=== PATIENT | female | born 1935 | race Caucasian/White ===

== ENCOUNTER 2017-06-24 12:04 | Emergency (ER) | payer OTHER ==
[2017-06-24 12:32] VITALS: TEMP 98.4; BMI 21.6
[2017-06-24 14:00] LABS: BASOPHIL 0.5 % (0-2.0); EOSINOPHIL 1.4 % (0-4.5); MCH 21.9 pg (25.7-33.7); MCHC 32.6 g/dl (32.0-36.0); MEAN CELL VOLUME 67.1 fl (80-96); MEAN PLT VOLUME 8.9 fl (7.5-11.1); NEUTROPHILS 55.3 % (42.8-82.8); PLATELET COUNT 243 K/MM3 (134-434); WHITE BLOOD COUNT 4.3 K/mm3 (4.0-10.0)
[2017-06-24 14:08] LABS: URINE APPEARANCE SLCLOUDY; URINE BILIRUBIN NEGATIVE (NEGATIVE); URINE BLOOD 2+ (NEGATIVE); URINE COLOR YELLOW; URINE GLUCOSE (UA) NEGATIVE (NEGATIVE); URINE KETONE NEGATIVE (NEGATIVE); URINE NITRITE NEGATIVE (NEGATIVE); URINE UROBILINOGEN NEGATIVE mg/dL (0.2-1.0)
[2017-06-24 14:13] LABS: URINE PROTEIN 1+ (NEGATIVE)
[2017-06-24 14:14] LABS: INR 1.71 (0.82-1.09); PROTHROMBIN TIME (PATIENT) 19.3 SEC (9.98-11.88)
[2017-06-24 14:24] LABS: ALBUMIN 3.6 g/dl (3.4-5.0); ANION GAP 6 (8-16); BILIRUBIN,TOTAL 0.9 mg/dL (0.2-1.0); CALCIUM 8.1 mg/dL (8.5-10.1); CO2 28 mmol/L (21-32); GLUCOSE,RANDOM 93 mg/dL (74-106); SGOT/AST 10 U/L (15-37); SGPT/ALT 20 U/L (12-78)
[2017-06-24 14:27] LABS: ALK PHOS 83 U/L (45-117); CPK 39 IU/L (26-192); TROPONIN I < 0.02 ng/ml (0.00-0.05); URINE HYALINE CAST 3 /lpf; URINE RBC 8 /hpf (0-3); URINE WBC 64 /hpf (3-5)
--- NOTE | 2017-06-24 14:52 | PDOC ---
History of Present Illness - General Chief Complaint: Hematuria Stated Complaint: CHEST PAIN (PCP SENT) Time Seen by Provider: 06/24/17 13:01 History Source: Patient Exam Limitations: No Limitations - History of Present Illness Travel History: No Initial Comments: 06/24/17 14:45 81-year-old female sent in by Dr. Juarez for evaluation of hematuria since yesterday. 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 Patient states has also had some left suprapubic cramping intermittently for the past 2 days. Patient states had a temperature of 10-1 last week which resolved and this morning had a temperature of 100.2. Patient denies chills, weakness, headache, dizziness but states has had this tingling sensation to her chin and bilateral arms twice in the past week with urination. Timing/Duration: reports: intermittent Quality: reports: mild, cramping Abdominal Pain Onset Location: reports: suprapubic (left) Pain Radiation: reports: no radiation Aggravating Factors: improves with: Voiding Alleviating Factors: improves with: None Past History - Travel Traveled outside of the country in the last 30 days: No Close contact w/someone who was outside of country & ill: No - Past Medical History Allergies/Adverse Reactions: Allergies Allergy/AdvReac Type Severity Reaction Status Date / Time alatrofloxacin mesylate Allergy Severe THROAT Verified 06/24/17 12:18 [From Trovan] Swelling trovafloxacin mesylate Allergy Severe THROAT Verified 06/24/17 12:18 [From Trovan] Swelling Tssbtwp-Ygk-Yqm Reductase Allergy Mild THROAT Verified 06/24/17 12:18 Inhibitor SWELLING/ITCHING amlodipine besylate Allergy TINGLING Verified 06/24/17 12:18 [From Norvasc] MOUTH, COUGH olmesartan medoxomil Allergy MOUTH Verified 06/24/17 12:18 [From Benicar] TINGLING, COUGH BRANDON Inhibitors AdvReac Intermediate Verified 06/24/17 12:18 [Brandon Inhibitors] Home Medications: Ambulatory Orders Levothyroxine [Synthroid -] 88 mcg PO DAILY 10/09/11 Telmisartan [Micardis] 80 mg PO DAILY 10/09/11 Bimatoprost [Lumigan] 1 drop OU HS 03/11/14 Brinzolamide [Azopt] 1 drop OU BID 03/11/14 Calcium Carbonate [Oysco-500] 2 tab PO DAILY 03/11/14 Diltiazem Cd [Cardizem Cd -] 120 mg PO DAILY 03/11/14 Furosemide [Lasix -] 40 mg PO DAILY 03/11/14 Nebivolol HCl [Bystolic] 10 mg PO HS 03/11/14 Apixaban [Eliquis] 5 mg PO BID 06/24/17 Aspirin [Shamar Chewable] 81 mg PO DAILY 06/24/17 Nitrofurantoin Monohyd/M-Cryst [Macrobid -] 100 mg PO BID #14 capsule 06/24/17 Anemia: Yes (thalassemia) Asthma: No Cancer: Yes (melanoma R cheek) Cardiac Disorders: No CVA: No COPD: No CHF: No Dementia: No Diabetes: No GI Disorders: No Disorders: No HTN: Yes Hypercholesterolemia: Yes Liver Disease: No Seizures: No Thyroid Disease: Yes (hashimotos hypothryroidism) - Surgical History Abdominal Surgery: Yes Appendectomy: Yes Cardiac Surgery: No Cholecystectomy: Yes Lung Surgery: No Neurologic Surgery: No Orthopedic Surgery: No - Suicide/Smoking/Psychosocial Hx Smoking Status: No Smoking History: Never smoked Have you smoked in the past 12 months: No Number of Cigarettes Smoked Daily: 0 Information on smoking cessation initiated: No Hx Alcohol Use: No Drug/Substance Use Hx: No Substance Use Type: None Hx Substance Use Treatment: No Patient Lives Alone: No Review of Systems - Review of Systems Able to Perform ROS?: Yes Constitutional: Yes: Fever. No: Chills HEENTM: No: Symptoms Reported Respiratory: No: Symptoms reported Cardiac (ROS): No: Symptoms Reported ABD/GI: Yes: Abdominal cramping (left suprapubic) : Yes: Hematuria. No: Burning, Dysuria, Flank Pain Musculoskeletal: No: Back Pain Integumentary: No: Symptoms Reported Neurological: No: Symptoms reported *Physical Exam - Vital Signs Last Vital Signs Temp Pulse Resp BP Pulse Ox 98.4 F 55 L 14 155/82 99 06/24/17 12:19 06/24/17 12:19 06/24/17 12:19 06/24/17 12:19 06/24/17 12:19 - Physical Exam General Appearance: Yes: Nourished, Appropriately Dressed. No: Apparent Distress HEENT: negative: Pale Conjunctivae Respiratory/Chest: positive: Lungs Clear, Normal Breath Sounds. negative: Respiratory Distress, Accessory Muscle Use Cardiovascular: positive: Regular Rhythm, Regular Rate. negative: Murmur Gastrointestinal/Abdominal: positive: Normal Bowel Sounds, Soft, Tenderness ( mild midsuprapubic). negative: Distended Musculoskeletal: negative: CVA Tenderness Extremity: negative: Pedal Edema Integumentary: positive: Normal Color, Warm, Moist Neurologic: positive: Motor Strength 5/5 (ambulatory) ED Treatment Course - LABORATORY CBC & Chemistry Diagram: 06/24/17 13:40 06/24/17 13:40 - ADDITIONAL ORDERS Additional order review: Laboratory Results 06/24/17 06/24/17 06/24/17 13:40 13:40 13:40 PT with INR 19.30 H INR 1.71 H D Sodium 140 Potassium 3.8 Chloride 106 Carbon Dioxide 28 Anion Gap 6 L BUN 16 Creatinine 1.0 Creat Clearance w eGFR 52.95 Random Glucose 93 Lactic Acid 0.5 Calcium 8.1 L Total Bilirubin 0.9 AST 10 L D ALT 20 Alkaline Phosphatase 83 Creatine Kinase 39 Troponin I < 0.02 Total Protein 6.0 L Albumin 3.6 Urine Color Urine Appearance Urine pH Urine Protein Urine Glucose (UA) Urine Ketones Urine Blood Urine Nitrite Urine Bilirubin Urine Urobilinogen Urine RBC Urine WBC Ur Epithelial Cells Hyaline Casts 06/24/17 13:40 PT with INR INR Sodium Potassium Chloride Carbon Dioxide Anion Gap BUN Creatinine Creat Clearance w eGFR Random Glucose Lactic Acid Calcium Total Bilirubin AST ALT Alkaline Phosphatase Creatine Kinase Troponin I Total Protein Albumin Urine Color Yellow Urine Appearance Slcloudy Urine pH 6.0 Urine Protein 1+ H Urine Glucose (UA) Negative Urine Ketones Negative Urine Blood 2+ H Urine Nitrite Negative Urine Bilirubin Negative Urine Urobilinogen Negative Urine RBC 8 Urine WBC 64 Ur Epithelial Cells Rare Hyaline Casts 3 06/24/17 13:40 RBC 5.15 MCV 67.1 L MCHC 32.6 RDW 16.0 H MPV 8.9 Neutrophils % 55.3 Lymphocytes % 26.2 D Monocytes % 16.6 H Eosinophils % 1.4 Basophils % 0.5 - RADIOLOGY Radiology Studies Ordered: Category Date Time Status KIDNEY / RENAL US [US] Stat Ultrasound 06/24/17 14:37 Ordered PELVIC / BLADDER US [US] Stat Ultrasound 06/24/17 13:10 Ordered Medical Decision Making - Medical Decision Making 06/24/17 14:04 Patient complains of hematuria since yesterday and a temperature of 102 last week. Patient also mentioned tingling to her bilateral arms twice over the past week. Patient exam had mild mid suprapubic tenderness with no CVA tenderness. Vital signs stable here in the ER. Patient was ordered for labs including coags , urine and urine culture, and ultrasound of the kidneys and bladder. 06/24/17 16:29 Laboratory Tests 06/24/17 06/24/17 06/24/17 13:40 13:40 13:40 WBC 4.3 Hgb 11.3 Hct 34.6 Plt Count 243 Neutrophils % 55.3 Monocytes % 16.6 H Platelet Estimate Adequate Fragmented RBCs 1+ PT with INR INR Sodium 140 Potassium 3.8 Chloride 106 Carbon Dioxide 28 Anion Gap 6 L BUN 16 Creatinine 1.0 Creat Clearance w eGFR 52.95 Random Glucose 93 Lactic Acid Calcium 8.1 L Total Bilirubin 0.9 AST 10 L D Troponin I < 0.02 Urine Protein 1+ H Urine Blood 2+ H Ur Leukocyte Esterase Pending Urine RBC 8 Urine WBC 64 06/24/17 06/24/17 13:40 13:40 WBC Hgb Hct Plt Count Neutrophils % Monocytes % Platelet Estimate Fragmented RBCs PT with INR 19.30 H INR 1.71 H D Sodium Potassium Chloride Carbon Dioxide Anion Gap BUN Creatinine Creat Clearance w eGFR Random Glucose Lactic Acid 0.5 Calcium Total Bilirubin AST Troponin I Urine Protein Urine Blood Ur Leukocyte Esterase Urine RBC Urine WBC Ultrasound of the kidney and pelvis showed no acute findings. Case discussed with Dr. flanagan, who spoke to Dr. Juarez feels patient may be discharged home with an antibiotic and can follow-up in the office on Tuesday. Patient given strict instructions to return to ED if symptoms worsen and to take antibiotics as prescribed. *DC/Admit/Observation/Transfer Diagnosis at time of Disposition: Hematuria, Urinary tract infection - Discharge Dispostion Disposition: HOME Condition at time of disposition: Good - Prescriptions Prescriptions: Nitrofurantoin Monohyd/M-Cryst [Macrobid -] 100 mg PO BID #14 capsule - Referrals Referrals: Wilmer Juarez MD [Primary Care Provider] - - Patient Instructions Printed Discharge Instructions: DI for Urinary Tract Infection (UTI), DI for Hematuria Additional Instructions: Please take antibiotics as prescribed until completed. Please drink plenty of water and if symptoms continue or worsen please return to the nearest emergency department. Otherwise follow-up with Dr. Juarez Tuesday
[2017-06-24 15:39] LABS: PLATELET ESTIMATE ADEQUATE (NORMAL)
[2017-06-24 15:40] LABS: HYPOCHROMIA 2+; SCHISTOCYTES FEW
[2017-06-24 16:40] VITALS: BP 140/79; PULSE 58
[2017-06-24 19:22] LABS: URINE LEUK ESTERASE 3+ (NEGATIVE)
--- NOTE | 2017-06-25 09:36 | EKG ---
Test Reason : Blood Pressure : / mmHG Vent. Rate : 056 BPM Atrial Rate : 056 BPM P-R Int : 174 ms QRS Dur : 086 ms QT Int : 468 ms P-R-T Axes : 033 003 012 degrees QTc Int : 451 ms SINUS BRADYCARDIA OTHERWISE NORMAL ECG WHEN COMPARED WITH ECG OF 11-MAR-2014 13:06, NO SIGNIFICANT CHANGE WAS FOUND Confirmed by HARSHA RODNEY MD ([id number]) on 06/25/2017 9:35:46 AM Referred By: Confirmed By:HARSHA RODNEY MD
== END 2017-06-24 16:40 | disposition home or self-care (01) ==
LOC: JER 12:04
DX: N39.0 Urinary tract infection, site not specified (principal); R31.9 Hematuria, unspecified; Z86.718 Personal history of other venous thrombosis and embolism; Z79.01 Long term (current) use of anticoagulants; I10 Essential (primary) hypertension; E78.00 Pure hypercholesterolemia, unspecified; D56.9 Thalassemia, unspecified; E03.9 Hypothyroidism, unspecified
CPT/HCPCS: 36415; 76775-TC; 76856-TC; 80053; 81003; 81015; 82550; 83605; 84484; 85025; 85610; 87086; 87186; 93005; 93010; 99284-25

== ENCOUNTER 2017-08-07 17:57 | Emergency (ER) | payer OTHER ==
--- NOTE | 2017-08-07 18:02 | PDOC ---
History of Present Illness - General History Source: Patient, Friend Exam Limitations: No Limitations - History of Present Illness Initial Comments: 08/07/17 18:14 The patient is a 81 year old female, with a significant past medical history of DVT on Eliquis, and hypertension, who presents to the emergency department with dry cough for approx. one week. The patient reports that approx. one week ago she was prescribed a Z-Len from her PCP Dr. Juarez over the phone for a measured fever, dry cough and nasal congestion. The patient states the fever resolved approx. 5 days ago, however, the cough has been productively worse. The patient states the cough has been non-productive, however, she feels as though she has a lot of mucus that is not coming up when she coughs. The patient reports the cough is worse at night while lying down and states that today the cough is the worse it has been. The patient reports shortness of breath on exertion secondary to the dry cough. She denies recent fever, chills, headache or dizziness. She denies recent nausea , vomit, diarrhea or constipation. She denies chest pain. PCP: Dr. Juarez <Freddie Peralta - Last Filed: 08/07/17 18:14> <Lisha Casanova - Last Filed: 08/07/17 19:04> - General Chief Complaint: Respiratory Stated Complaint: COUGH Time Seen by Provider: 08/07/17 18:01 Past History <Freddie Peralta - Last Filed: 08/07/17 18:14> - Past Medical History Anemia: Yes (thalassemia) Asthma: No Cancer: Yes (melanoma R cheek) Cardiac Disorders: No CVA: No COPD: No CHF: No Dementia: No Diabetes: No GI Disorders: No Disorders: No HTN: Yes Hypercholesterolemia: Yes Liver Disease: No Seizures: No Thyroid Disease: Yes (hashimotos hypothryroidism) - Surgical History Abdominal Surgery: Yes Appendectomy: Yes Cardiac Surgery: No Cholecystectomy: Yes Lung Surgery: No Neurologic Surgery: No Orthopedic Surgery: No - Suicide/Smoking/Psychosocial Hx Smoking Status: No Smoking History: Never smoked Have you smoked in the past 12 months: No Number of Cigarettes Smoked Daily: 0 Hx Alcohol Use: No Drug/Substance Use Hx: No Substance Use Type: None Hx Substance Use Treatment: No <Lisha Casanova - Last Filed: 08/07/17 19:04> - Past Medical History Allergies/Adverse Reactions: Allergies Allergy/AdvReac Type Severity Reaction Status Date / Time alatrofloxacin mesylate Allergy Severe THROAT Verified 08/07/17 17:58 [From Trovan] Swelling trovafloxacin mesylate Allergy Severe THROAT Verified 08/07/17 17:58 [From Trovan] Swelling Vrhprpd-Nzl-Tll Reductase Allergy Mild THROAT Verified 08/07/17 17:58 Inhibitor SWELLING/ITCHING amlodipine besylate Allergy TINGLING Verified 08/07/17 17:58 [From Norvasc] MOUTH, COUGH olmesartan medoxomil Allergy MOUTH Verified 08/07/17 17:58 [From Benicar] TINGLING, COUGH BRANDON Inhibitors AdvReac Intermediate Verified 08/07/17 17:58 [Brandon Inhibitors] Home Medications: Ambulatory Orders Levothyroxine [Synthroid -] 88 mcg PO DAILY 10/09/11 Telmisartan [Micardis] 80 mg PO DAILY 10/09/11 Bimatoprost [Lumigan] 1 drop OU HS 03/11/14 Brinzolamide [Azopt] 1 drop OU BID 03/11/14 Calcium Carbonate [Oysco-500] 2 tab PO DAILY 03/11/14 Diltiazem Cd [Cardizem Cd -] 120 mg PO DAILY 03/11/14 Furosemide [Lasix -] 40 mg PO DAILY 03/11/14 Nebivolol HCl [Bystolic] 10 mg PO HS 03/11/14 Apixaban [Eliquis] 5 mg PO BID 06/24/17 Cyclosporine [Restasis] 1 each OU BID 08/07/17 Ergocalciferol (Vitamin D2) [Vitamin D2] 50,000 unit PO WEEKLY 08/07/17 Review of Systems - Review of Systems Comments:: 08/07/17 18:20 GENERAL/CONSTITUTIONAL: No fever or chills. No weakness. HEAD, EYES, EARS, NOSE AND THROAT: No change in vision. No ear pain or discharge. No sore throat. CARDIOVASCULAR: +Shortness of breath with exertion. No chest pain. RESPIRATORY: +Dry cough. No wheezing, or hemoptysis. GASTROINTESTINAL: No nausea, vomiting, diarrhea or constipation. GENITOURINARY: No dysuria, frequency, or change in urination. MUSCULOSKELETAL: No joint or muscle swelling or pain. No neck or back pain. SKIN: No rash NEUROLOGIC: No headache, vertigo, loss of consciousness, or change in strength/ sensation. ENDOCRINE: No increased thirst. No abnormal weight change. HEMATOLOGIC/LYMPHATIC: No anemia, easy bleeding, or history of blood clots. ALLERGIC/IMMUNOLOGIC: No hives or skin allergy. <Freddie Peralta - Last Filed: 08/07/17 18:14> *Physical Exam - Vital Signs Last Vital Signs Temp Pulse Resp BP Pulse Ox 97.8 F 53 L 18 147/80 97 08/07/17 17:57 08/07/17 17:57 08/07/17 17:57 08/07/17 17:57 08/07/17 17:57 - Physical Exam Comments: 08/07/17 18:22 GENERAL: Awake, alert, and fully oriented, in no acute distress HEAD: No signs of trauma EYES: PERRLA, EOMI, sclera anicteric, conjunctiva clear ENT: Auricles normal inspection, hearing grossly normal, nares patent, oropharynx clear without exudates. Moist mucosa NECK: Normal ROM, supple, no lymphadenopathy, JVD, or masses LUNGS: Breath sounds equal, clear to auscultation bilaterally. No wheezes, and no crackles HEART: Regular rate and rhythm, normal S1 and S2, no murmurs, rubs or gallops ABDOMEN: Soft, nontender, normoactive bowel sounds. No guarding, no rebound. No masses EXTREMITIES: Normal range of motion, no edema. No clubbing or cyanosis. No cords, erythema, or tenderness NEUROLOGICAL: Cranial nerves II through XII grossly intact. Normal speech, normal gait SKIN: Warm, Dry, normal turgor, no rashes or lesions noted. <Freddie Peralta - Last Filed: 08/07/17 18:14> Medical Decision Making - Medical Decision Making 08/07/17 18:40 Pt presents to the ED complaining of persistent dry cough. patient had cough and fever earlier in the week--called her Dr. Juarez who prescribed z pack, which she has now completed. Fever has resolved, but cough is persistent. No symptoms concerning for cardiac disease, such as orthopnea, CASTELLANO, peripheral edema or chest pain. Presents today because the cough has persisted and because she sounded rhonchorous to her daughter, who's a nurse. Will check CXR to rule out pneumonia. EKG is negative for ischemia. <Lisha Casanova - Last Filed: 08/07/17 19:04> *DC/Admit/Observation/Transfer - Attestations Scribe Attestion: 08/07/17 18:23 Documentation prepared by Freddie Peralta, acting as paramedical aide for Lisha Casanova MD. <Freddie Peralta - Last Filed: 08/07/17 18:14> - Discharge Dispostion Admit: No <Lisha Casanova - Last Filed: 08/07/17 19:04> Diagnosis at time of Disposition: Cough - Discharge Dispostion Disposition: HOME Condition at time of disposition: Good - Referrals Referrals: Wilmer Juarez MD [Primary Care Provider] - - Patient Instructions Printed Discharge Instructions: DI for Viral Upper Respiratory Infection -- Adult Additional Instructions: you can take over the counter guiafenasin for cough. Return to the ED for severe chest pain or shortness of breath, fever, new or worsening symptoms. Make sure that you follow up with Dr. Juarez tomorrow. - Post Discharge Activity
[2017-08-07 18:04] VITALS: BP 147/80; PULSE 53; TEMP 97.8; BMI 20.6
--- NOTE | 2017-08-08 17:07 | EKG ---
Test Reason : Blood Pressure : / mmHG Vent. Rate : 052 BPM Atrial Rate : 052 BPM P-R Int : 170 ms QRS Dur : 090 ms QT Int : 524 ms P-R-T Axes : 062 003 019 degrees QTc Int : 487 ms SINUS BRADYCARDIA POSSIBLE LEFT ATRIAL ENLARGEMENT Prolonged QT WHEN COMPARED WITH ECG OF 24-JUN-2017 12:20, QT longer Confirmed by MD SHANEKA, DIANA ([id number]) on 08/08/2017 5:06:50 PM Referred By: EILEEN Confirmed By:DIANA MUNROE MD
== END 2017-08-07 19:10 | disposition home or self-care (01) ==
LOC: FER 17:57
DX: R05 Cough (principal)
CPT/HCPCS: 71020-TC; 93005; 99283-25

== ENCOUNTER 2020-11-04 21:59 | Emergency (ER) | payer OTHER ==
[2020-11-04 22:04] VITALS: BMI 21.6
[2020-11-05 00:17] VITALS: PULSE 60; TEMP 97.9
[2020-11-05 00:17] LABS: BASO % 0.5 % (0-2.0); EOS % 0.9 % (0-4.5); HEMATOCRIT 32.4 % (32.4-45.2); HEMOGLOBIN 10.5 GM/dL (10.7-15.3); LYMPH % 19.2 % (8-40); MCH 20.9 pg (25.7-33.7); MCHC 32.3 g/dl (32.0-36.0); MEAN CELL VOLUME 64.8 fl (80-96); MEAN PLT VOLUME 8.7 fl (7.5-11.1); MONO % 21.3 % (3.8-10.2); NEUT % 58.1 % (42.8-82.8); PLATELET COUNT 186 K/MM3 (134-434); RDW 17.9 % (11.6-15.6); WHITE BLOOD COUNT 4.2 K/mm3 (4.0-10.0)
[2020-11-05 00:39] LABS: CHLORIDE 107 mmol/L (98-107); POTASSIUM 3.3 mmol/L (3.5-5.1); SODIUM 141 mmol/L (136-145)
[2020-11-05 00:41] LABS: ALBUMIN 3.6 g/dl (3.4-5.0); ANION GAP 7 MMOL/L (8-16); BLOOD UREA NITROGEN 23.5 mg/dL (7-18); CO2 27 mmol/L (21-32); GLUCOSE,RANDOM 97 mg/dL (74-106); MAGNESIUM 2.3 mg/dL (1.8-2.4)
[2020-11-05 00:45] LABS: SGOT/AST 11 U/L (15-37); SGPT/ALT 13 U/L (13-61)
[2020-11-05 00:46] LABS: BILIRUBIN,TOTAL 0.8 mg/dL (0.2-1); TOT PROT 6.3 g/dl (6.4-8.2)
[2020-11-05 00:48] LABS: ALK PHOS 83 U/L (45-117)
[2020-11-05 00:51] LABS: CALCIUM 8.3 mg/dL (8.5-10.1)
[2020-11-05] MEDS ORDERED: POTASSIUM CHLORIDE ORAL LIQUID 20 MEQ/15 ML PO ONE (01:56)
[2020-11-05 03:00] VITALS: BP 180/90
[2020-11-05] MEDS ORDERED: POTASSIUM CHLORIDE ORAL LIQUID 20 MEQ/15 ML ONE (03:03)
[2020-11-05 03:51] LABS: ANISOCYTOSIS 1+; MACROCYTOSIS 0; PLATELET ESTIMATE DECREASED
== END 2020-11-05 04:59 | disposition home or self-care (01) ==
LOC: JER 21:59
DX: M54.5 Low back pain (principal)
CPT/HCPCS: 36415; 70450-TC; 71250-TC; 72125-TC; 72128-TC; 74176-TC; 80053; 82550; 83735; 84484; 85025; 93005; 93010; 99283-25

== ENCOUNTER 2020-11-11 14:29 | Emergency (ER) | payer OTHER ==
[2020-11-11 14:42] VITALS: BMI 21.6
[2020-11-11 16:49] LABS: BASO % 0.9 % (0-2.0); EOS % 0.4 % (0-4.5); HEMATOCRIT 32.5 % (32.4-45.2); HEMOGLOBIN 10.2 GM/dL (10.7-15.3); LYMPH % 17.7 % (8-40); MCH 20.7 pg (25.7-33.7); MCHC 31.4 g/dl (32.0-36.0); MEAN CELL VOLUME 66.1 fl (80-96); MEAN PLT VOLUME 9.2 fl (7.5-11.1); MONO % 16.5 % (3.8-10.2); NEUT % 64.5 % (42.8-82.8); PLATELET COUNT 198 K/MM3 (134-434); RBC 4.91 M/mm3 (3.60-5.2); RDW 18.3 % (11.6-15.6); WHITE BLOOD COUNT 5.1 K/mm3 (4.0-10.0)
[2020-11-11] MEDS ORDERED: NEBIVOLOL 10 MG TABLET (FP) PO ONE (17:12)
[2020-11-11 17:13] LABS: CHLORIDE 108 mmol/L (98-107); POTASSIUM 4.1 mmol/L (3.5-5.1); SODIUM 143 mmol/L (136-145)
[2020-11-11 17:15] LABS: ALBUMIN 3.7 g/dl (3.4-5.0); ANION GAP 6 MMOL/L (8-16); BLOOD UREA NITROGEN 23.8 mg/dL (7-18); CALCIUM 9.1 mg/dL (8.5-10.1); CO2 28 mmol/L (21-32); GLUCOSE,RANDOM 85 mg/dL (74-106); MAGNESIUM 2.7 mg/dL (1.8-2.4)
[2020-11-11 17:18] LABS: CREATININE 1.1 mg/dL (0.55-1.3)
[2020-11-11 17:19] LABS: SGOT/AST 10 U/L (15-37); SGPT/ALT 14 U/L (13-61)
[2020-11-11 17:20] LABS: BILIRUBIN,TOTAL 1.1 mg/dL (0.2-1); TOT PROT 6.2 g/dl (6.4-8.2)
[2020-11-11 17:21] LABS: ALK PHOS 96 U/L (45-117)
[2020-11-11 17:44] VITALS: BP 199/88; PULSE 66
[2020-11-11 18:09] LABS: EPI CELLS 2 /uL (0-25.1); HYALINE CASTS 1 /uL (0-3.1); URINE APPEARANCE CLEAR; URINE BACTERIA >9,000 /uL (0-1359); URINE BILIRUBIN NEGATIVE (NEGATIVE); URINE COLOR YELLOW; URINE GLUCOSE (UA) NEGATIVE (NEGATIVE); URINE KETONE NEGATIVE (NEGATIVE); URINE LEUK ESTERASE 2+ (NEGATIVE); URINE NITRITE NEGATIVE (NEGATIVE); URINE PROTEIN TRACE (NEGATIVE); URINE RBC 744 /uL (0-23.9); URINE UROBILINOGEN 0.2 mg/dL (0.2-1.0); URINE WBC 147 /uL (0-25.8)
[2020-11-11] MEDS ORDERED: CEPHALEXIN MONOHYDRATE 500 MG CAPSULE (UD) PO ONE (18:35)
[2020-11-11] MEDS ORDERED: CEPHALEXIN MONOHYDRATE 500 MG CAPSULE (UD) ONE (18:36)
[2020-11-11 19:44] LABS: ANISOCYTOSIS 2+; MACROCYTOSIS 0; OVALOCYTE 1+; PLATELET ESTIMATE NORMAL
== END 2020-11-11 18:45 | disposition home or self-care (01) ==
LOC: JER 14:29
DX: N30.01 Acute cystitis with hematuria (principal)
CPT/HCPCS: 36415; 80053; 81003; 83735; 84484; 85025; 87086; 87186; 93005; 93010; 99284-25

== ENCOUNTER 2021-01-02 11:19 | Emergency (ER) | payer OTHER ==
[2021-01-02 11:34] VITALS: BP 160/89; PULSE 68; TEMP 98.2; BMI 21.6
[2021-01-02 13:04] LABS: EOS % 0.3 % (0-4.5); HEMATOCRIT 32.2 % (32.4-45.2); HEMOGLOBIN 10.5 GM/dL (10.7-15.3); MCH 21.1 pg (25.7-33.7); MCHC 32.5 g/dl (32.0-36.0); MEAN CELL VOLUME 64.8 fl (80-96); MEAN PLT VOLUME 8.8 fl (7.5-11.1); MONO % 15.8 % (3.8-10.2); NEUT % 63.9 % (42.8-82.8); PLATELET COUNT 202 K/MM3 (134-434); RBC 4.98 M/mm3 (3.60-5.2); RDW 18.9 % (11.6-15.6); WHITE BLOOD COUNT 6.5 K/mm3 (4.0-10.0)
[2021-01-02 13:08] LABS: EPI CELLS 3 /uL (0-25.1); HYALINE CASTS 0 /uL (0-3.1); URINE APPEARANCE CLEAR; URINE BACTERIA 147 /uL (0-1359); URINE BILIRUBIN NEGATIVE (NEGATIVE); URINE COLOR YELLOW; URINE GLUCOSE (UA) NEGATIVE (NEGATIVE); URINE KETONE NEGATIVE (NEGATIVE); URINE LEUK ESTERASE 1+ (NEGATIVE); URINE NITRITE NEGATIVE (NEGATIVE); URINE PROTEIN NEGATIVE (NEGATIVE); URINE RBC 3 /uL (0-23.9); URINE UROBILINOGEN 0.2 mg/dL (0.2-1.0); URINE WBC 56 /uL (0-25.8)
[2021-01-02 13:23] LABS: CALCIUM 8.4 mg/dL (8.5-10.1)
[2021-01-02 13:24] LABS: ALBUMIN 3.9 g/dl (3.4-5.0)
[2021-01-02 13:27] LABS: CREATININE 1.2 mg/dL (0.55-1.3)
[2021-01-02 13:28] LABS: BILIRUBIN,TOTAL 0.8 mg/dL (0.2-1)
[2021-01-02 13:31] LABS: ANISOCYTOSIS 3+; MACROCYTOSIS 0; PLATELET ESTIMATE NORMAL
[2021-01-02] MEDS ORDERED: NITROFURANTOIN MACROCRYSTAL 50 MG CAPSULE (FP) PO ONE (13:45)
[2021-01-02] MEDS ORDERED: NITROFURANTOIN MACROCRYSTAL 50 MG CAPSULE (FP) ONE (13:46)
== END 2021-01-02 14:30 | disposition home or self-care (01) ==
LOC: JER 11:19
DX: N30.90 Cystitis, unspecified without hematuria (principal)
CPT/HCPCS: 36415; 80053; 81003; 85025; 87086; 99283-25